=== PATIENT | female | born 2000 ===

== ENCOUNTER 2021-07-12 15:03 | Inpatient (IN) | payer MEDICAID ==
[2021-07-12] MEDS ORDERED: ONDANSETRON 4 MG/2 ML INJ IV PRN (16:59)
[2021-07-12] MEDS ORDERED: TERBUTALINE 1 MG/1 ML INJ SUB-Q PRN (16:59)
[2021-07-12] MEDS ORDERED: NALOXONE 0.4 MG/1 ML INJ IV PRN (16:59)
[2021-07-12] MEDS ORDERED: ePHEDrine SULFATE 50 MG/1 ML INJ IV PRN (16:59)
[2021-07-12] MEDS ORDERED: METHYLERGONOVINE MALEATE 0.2 MG/ML VIAL IM PRN (16:59)
[2021-07-12] MEDS ORDERED: MINERAL OIL 30 ML ORAL LIQD PO PRN (16:59)
[2021-07-12] MEDS ORDERED: ACETAMINOPHEN 325 MG TAB PO PRN (16:59)
[2021-07-12] MEDS ORDERED: LIDOCAINE (2%) 20 MG/1 ML VIAL 20 ML MDV INFILTRATI ONE (16:59)
[2021-07-12] MEDS ORDERED: CARBOPROST TROMETHAMINE 250 MCG/1 ML INJ IM PRN (16:59)
[2021-07-12] MEDS ORDERED: fentaNYL 100 MCG/2 ML INJ IV PRN (16:59)
[2021-07-12] MEDS ORDERED: OXYTOCIN 10 UNIT/1 ML INJ IM PRN (16:59)
[2021-07-12] MEDS ORDERED: BUTORPHANOL 2 MG/1 ML INJ IV PRN (16:59)
[2021-07-12] MEDS ORDERED: PROMETHAZINE 25 MG TAB PO PRN (16:59)
[2021-07-12] MEDS ORDERED: miSOPROStol 200 MCG TAB PR PRN (16:59)
[2021-07-12] MEDS ORDERED: LOPERAMIDE 2 MG CAP PO PRN (16:59)
[2021-07-12] MEDS ORDERED: OXYTOCIN DRIP 30 UNITS/500 ML BAG IV SCH ×2 (17:00)
--- NOTE | 2021-07-12 17:04 | History and Physical Report ---
History of Present Illness Date of examination: 07/12/21 Date of admission: 07/12/2021 Chief complaint: My water broke. History of present illness: Pt is a @ 39+ wks who presents to triage with c/o SROM at 1000 am for clear fluid. She has a history of PPH with her first delivery. EDC Confirmation: 07/15/2021 Gestational Age: 39.4 weeks on admission Past History : 2 # 1 Delivery date: 10/10/2017 Delivery type: Delivery location: [place] Infant Sex: Male Comments: hemorrhage Past Medical History: Reviewed and updated today: Negative Past Surgical History: Reviewed and updated today: Negative General Comments - FH: Negative Risk Factors: Smoked Tobacco Use: Never smoker Smokeless Tobacco Use: Never Passive Smoke Exposure: no HIV High Risk Behavior: no Exercise: no Seatbelt Use: 100 % No Dietary Counseling Reason: pn yes Alcohol Use: no Drug Use: no Past Medical History Anesthesia Complications: negative Anemia: negative Autoimmune Disorder: negative Bleeding Disorder: negative Blood Transfusions: negative Breast Disease: negative Diabetes: negative Heart Disease: negative Hypertension: negative Hepatitis/Liver Disease: negative Kidney Disease/UTI: negative Neurologic/Epilepsy/Migraines: negative Phlebitis/Varicosities: negative Psychiatric: negative Pulmonary Disease/Asthma: negative Thyroid Disease: negative Hospitalizations: negative Surgery (Non-debt recovery officer): Negative Abnormal PAP: negative Infertility: negative Uterine Anomaly: negative Uterine Surgery (not C/S): negative Family Hx: Negative Infection History Hx of STD: none HIV Risk Eval: no Personal hx. of genital herpes: no Genetic History Congenital Heart Defect: Mom: no Verenice Disease: Mom: no Thalassemia Mom: no Neural Tube Defect Mom: no Down's Syndrome Mom: no Jakob-Sachs Mom: no Sickle Cell Disease/Trait Mom: no Hemophilia Mom: no Muscular Dystrophy Mom: no Cystic Fibrosis Mom: no Tu Chorea Mom: no Mental Retardation Mom: no Fragile X Mom: no Other Genetic/Chromosomal Disorder Mom: no Child w/other defect Mom: no Enviromental Exposures Xray Exposure: no Medication, drug, or alcohol use since LMP: no Chemical/Other Exposure: no Exposure to Cat Liter: no Hx of Parvovirus (Fifth Disease): no Past History Past Surgical History: no surgical history 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 ) Social history: no significant social history - Obstetrical History Expected Date of Delivery: 07/15/21 Actual Gestation: 39 Week(s) 4 Day(s) : 2 Para: 1 Hx # Term Pregnancies: 1 Number of Pregnancies: 0 Spontaneous Abortions: 0 Induced : 0 Number of Living Children: 1 Medications and Allergies Allergies Allergy/AdvReac Type Severity Reaction Status Date / Time No Known Allergies Allergy Verified 07/12/21 15:19 Home Medications Medication Instructions Recorded Confirmed Last Taken Type No Known Home Medications [No 07/12/21 07/12/21 Unknown History Reported Home Medications] Active Meds: Active Medications Acetaminophen (Acetaminophen 325 Mg Tab) 650 mg PO Q4H PRN PRN Reason: Pain, Mild (1-3) Butorphanol Tartrate (Butorphanol 2 Mg/1 Ml Inj) 1 mg IV Q2H PRN PRN Reason: Pain, Moderate(4-6) LABOR PAIN Carboprost Tromethamine (Carboprost Tromethamine 250 Mcg/1 Ml Inj) 250 mcg IM ONCE PRN PRN Reason: Uterine Bleeding Ephedrine Sulfate (Ephedrine Sulfate 50 Mg/1 Ml Inj) 10 mg IV Q2M PRN PRN Reason: Hypotension Fentanyl (Fentanyl 100 Mcg/2 Ml Inj) 100 mcg IV Q2H PRN PRN Reason: Pain,Severe (7-10) LABOR PAIN Oxytocin/Sodium Chloride (Pitocin/Ns 30 Unit/500ml) 30 units in 500 mls @ 4 mls/hr IV TITR ABDIRASHID; Protocol Lactated Ringer's (Lactated Ringers) 1,000 mls @ 125 mls/hr IV DIRECT ABDIRASHID Oxytocin/Sodium Chloride (Pitocin/Ns 30 Unit/500ml) 30 units in 500 mls @ 40 mls/hr IV TITR ABDIRASHID; Protocol Lidocaine (Lidocaine (2%) 20 Mg/1 Ml Vial 20 Ml Mdv) 20 ml INFILTRATI ONCE ONE Stop: 07/12/21 17:00 Loperamide HCl (Loperamide 2 Mg Cap) 2 mg PO ONCE PRN PRN Reason: give with Hemabate Methylergonovine Maleate (Methylergonovine Maleate 0.2 Mg/Ml Vial) 0.2 mg IM ONCE PRN PRN Reason: Uterine Bleeding Mineral Oil (Mineral Oil 30 Ml Oral Liqd) 30 ml PO QHS PRN PRN Reason: Constipation Misoprostol (Misoprostol 200 Mcg Tab) 800 mcg AR ONCE PRN PRN Reason: Uterine Bleeding Naloxone HCl (Naloxone 0.4 Mg/1 Ml Inj) 0.1 mg IV Q2MIN PRN PRN Reason: Res Rate </= 8 or 02 SAT < 92% Ondansetron HCl (Ondansetron 4 Mg/2 Ml Inj) 4 mg IV Q8H PRN PRN Reason: Nausea And Vomiting Oxytocin (Oxytocin 10 Unit/1 Ml Inj) 10 unit IM ONCE PRN PRN Reason: Uterine Bleeding Promethazine HCl (Promethazine 25 Mg Tab) 25 mg PO Q6H PRN PRN Reason: Nausea And Vomiting Terbutaline Sulfate (Terbutaline 1 Mg/1 Ml Inj) 0.25 mg SUB-Q ONCE PRN PRN Reason: Hyperstimulation/Hypertonicity Review of Systems All systems: negative - Vital Signs Vital signs: Vital Signs Pulse BP 95 H 107/71 07/12/21 15:23 07/12/21 15:23 Temp Pulse Resp BP Pulse Ox 98.2 F 85 16 116/70 07/12/21 15:25 07/12/21 16:13 07/12/21 15:25 07/12/21 16:13 - Physical Exam Breasts: Positive: deferred Cardiovascular: Regular rate Lungs: Positive: Normal air movement Abdomen: Positive: normal appearance, soft Genitourinary (Female): Positive: normal external genitalia, normal perenium Vulva: both: normal Vagina: Positive: other (Clear fluid seen at the introitus.) Uterus: Positive: normal size Extremities: Positive: normal - Obstetrical FHR: category 1 Uterine Contraction Monitor Mode: External Cervical Dilatation: 5 (SROM clear fluid) Cervical Effacement Percentage: 70 station: -2 Uterine Contraction Pattern: Regular Uterine Tone Measurement Phase: Resting Uterine Contraction Intensity: Mild Results Result Diagrams: 07/12/21 17:10 Abnormal lab results 07/12/21 Range/Units 15:20 Membranes Rupture Positive A (Negative) All other labs normal. GBS NEGATIVE HBsAg Screen Negative Negative *1 RPR Non Reactive Non Reactive *2 Rubella Antibodies, IgG 1.05 index Immune >0.99 *3 Non-immune <0.90 Equivocal 0.90 - 0.99 Immune >0.99 ABO Grouping O *4 Rh Factor Positive *5 Please note: Prior records for this patient's ABO / Rh type are not available for additional verification. Antibody Screen Negative Negative *6 Tests: (2) HB Solu + Rflx [facility] ([id number]) Hemoglobin (Hgb) Solubility Negative Negative *31 Tests: (3) HIV Ab/p24 Ag with Reflex ([id number]) HIV Ab/p24 Ag Screen Non Reactive Non Reactive *32 HIV Negative HIV-1/HIV-2 antibodies and HIV-1 p24 antigen were NOT detected. There is no laboratory evidence of HIV infection. Tests: (5) HCV Antibody reflex to BILL ([id number]) HCV Ab <0.1 s/co ratio 0.0-0.9 *34 Tests: (6) Interpretation: ([id number]) ! Interpretation: SPRCS *35 Negative Not infected with HCV, unless recent infection is suspected or other evidence exists to indicate HCV infection. Assessment and Plan A: 21 y.o. @ 39.4 wks, SROM. - Patient Problems (1) History of hemorrhage Current Visit: Yes Status: Acute Plan to address problem: Have uterotonics in room at delivery. (2) SROM (spontaneous rupture of membranes) Current Visit: Yes Status: Acute Plan to address problem: Limit vaginal exams. Monitor for s/sx of chorioamnionitis. (3) with 39 completed weeks gestation Current Visit: Yes Status: Acute Plan to address problem: Admit to labor and delivery. Initiate IV. Draw admission labs. IV pain management: IV pain medication. Anticipate .
[2021-07-12 18:01] LABS: Hematocrit 33.9 % (30.3-42.9); Hemoglobin 11.6 gm/dl (10.1-14.3); Mean Corpuscular HGB Conc 34 % (30-34); Mean Corpuscular Volume 81 fl (79-97); Platelet Count 209 K/mm3 (140-440); Red Blood Count 4.21 M/mm3 (3.65-5.03); Red Cell Distribution Width 13.9 % (13.2-15.2)
[2021-07-12] MEDS: LACTATED RINGERS 1,000 ML IV SCH ×2 (18:31→19:22)
--- NOTE | 2021-07-12 21:43 | Progress Note ---
Assessment and Plan A: 21 y.o. @ 39.4 wks, SROM, active labor (). P: Continue with Pitocin per protocol. Consider internal monitors at next exam if unchanged cervical exam. Anticipate . - Patient Problems (1) History of hemorrhage Current Visit: Yes Status: Acute (2) SROM (spontaneous rupture of membranes) Current Visit: Yes Status: Acute (3) with 39 completed weeks gestation Current Visit: Yes Status: Acute Subjective - Subjective Date of service: 07/12/21 Principal diagnosis: IUP @ 39.4 wks, SROM @ 10am clear fluid Patient reports: movement normal, contractions (Requesting IV pain medication. ) Objective - Vital Signs Vital Signs: Vital Signs - 12hr 07/12/21 07/12/21 07/12/21 15:23 15:25 16:13 Temperature 98.2 F Pulse Rate 95 H 95 H 85 Respiratory 16 Rate Blood Pressure 107/71 116/70 Blood Pressure 107/71 [Right] O2 Sat by Pulse Oximetry O2 Sat by Pulse Oximetry [ Bilateral] 07/12/21 07/12/21 07/12/21 18:49 18:55 19:00 Temperature Pulse Rate Respiratory Rate Blood Pressure Blood Pressure [Right] O2 Sat by Pulse 90 94 Oximetry O2 Sat by Pulse 99 Oximetry [ Bilateral] 07/12/21 07/12/21 07/12/21 19:11 19:12 19:17 Temperature 99.0 F Pulse Rate 82 77 Respiratory 16 Rate Blood Pressure 119/75 Blood Pressure 119/75 [Right] O2 Sat by Pulse 99 85 Oximetry O2 Sat by Pulse Oximetry [ Bilateral] 07/12/21 07/12/21 07/12/21 19:18 19:21 19:23 Temperature Pulse Rate 87 87 Respiratory 16 Rate Blood Pressure Blood Pressure [Right] O2 Sat by Pulse 100 98 Oximetry O2 Sat by Pulse Oximetry [ Bilateral] 07/12/21 07/12/21 07/12/21 19:28 19:33 19:38 Temperature Pulse Rate 69 84 74 Respiratory Rate Blood Pressure Blood Pressure [Right] O2 Sat by Pulse 97 98 97 Oximetry O2 Sat by Pulse Oximetry [ Bilateral] 07/12/21 07/12/21 07/12/21 19:43 19:48 19:53 Temperature Pulse Rate 79 79 85 Respiratory Rate Blood Pressure Blood Pressure [Right] O2 Sat by Pulse 97 97 97 Oximetry O2 Sat by Pulse Oximetry [ Bilateral] 07/12/21 07/12/21 07/12/21 19:58 20:07 20:12 Temperature Pulse Rate 104 H 81 68 Respiratory Rate Blood Pressure Blood Pressure [Right] O2 Sat by Pulse 97 96 96 Oximetry O2 Sat by Pulse Oximetry [ Bilateral] 07/12/21 07/12/21 07/12/21 20:17 20:22 20:27 Temperature Pulse Rate 75 83 93 H Respiratory Rate Blood Pressure Blood Pressure [Right] O2 Sat by Pulse 96 96 97 Oximetry O2 Sat by Pulse Oximetry [ Bilateral] 07/12/21 07/12/21 07/12/21 20:32 20:37 20:42 Temperature Pulse Rate 76 86 80 Respiratory Rate Blood Pressure Blood Pressure [Right] O2 Sat by Pulse 96 97 96 Oximetry O2 Sat by Pulse Oximetry [ Bilateral] 07/12/21 07/12/21 07/12/21 20:47 20:52 20:57 Temperature Pulse Rate 83 90 93 H Respiratory Rate Blood Pressure Blood Pressure [Right] O2 Sat by Pulse 97 96 96 Oximetry O2 Sat by Pulse Oximetry [ Bilateral] 07/12/21 07/12/21 07/12/21 21:02 21:07 21:12 Temperature Pulse Rate 100 H 92 H 94 H Respiratory Rate Blood Pressure Blood Pressure [Right] O2 Sat by Pulse 97 97 97 Oximetry O2 Sat by Pulse Oximetry [ Bilateral] 07/12/21 07/12/21 07/12/21 21:17 21:22 21:27 Temperature Pulse Rate 91 H 87 95 H Respiratory Rate Blood Pressure Blood Pressure [Right] O2 Sat by Pulse 96 97 99 Oximetry O2 Sat by Pulse Oximetry [ Bilateral] 07/12/21 07/12/21 07/12/21 21:32 21:37 21:40 Temperature Pulse Rate 74 97 H 74 Respiratory Rate Blood Pressure Blood Pressure [Right] O2 Sat by Pulse 99 98 93 Oximetry O2 Sat by Pulse Oximetry [ Bilateral] - Exam Cardiovascular: Regular rate Lungs: Normal air movement Abdomen: Present: normal appearance Vulva: both: normal FHR: category 1 Uterine Contraction Monitor Mode: External Cervical Dilatation: 6 (Per RN) Cervical Effacement Percentage: 70 station: -1 Uterine Contraction Pattern: Regular Uterine Tone Measurement Phase: Resting Uterine Contraction Intensity: Moderate - Labs Labs: Abnormal Labs 02/25/22 15:20 Membranes Rupture Positive A Laboratory Results - last 24 hr 07/12/21 07/12/21 07/12/21 15:20 17:10 17:10 WBC 11.0 RBC 4.21 Hgb 11.6 Hct 33.9 MCV 81 MCH 28 MCHC 34 RDW 13.9 Plt Count 209 Membranes Rupture Positive A Syphilis IgG/IgM Ab Nonreactive Blood Type Antibody Screen 07/12/21 17:10 WBC RBC Hgb Hct MCV MCH MCHC RDW Plt Count Membranes Rupture Syphilis IgG/IgM Ab Blood Type O POSITIVE Antibody Screen Negative
--- NOTE | 2021-07-12 22:51 | Procedure Note ---
OB Delivery Note - Delivery Date of Delivery: 07/12/21 Production Statistical Clerk: SARAH MARRERO Estimated blood loss: 100cc - Vaginal Delivery presentation: vertex Delivery position: OA Intrapartum events: none Delivery induction: none Delivery augmentation: pitocin Delivery monitor: external FHT, external uterine Route of delivery: Delivery placenta: spontaneous Delivery cord: 3 umbilical vessels Episiotomy: none Delivery laceration: none Anesthesia: intravenous Delivery comments: of viable male . to mother's abdomen for skin to skin. Cord clamped after cessation of pulse. Cut by FOC. Spontaneous delivery of placenta, intact, complete, 3 vessels noted. Perineum and vagina inspected, no lacerations noted. Fundus firm, minimal bleeding noted. EBL 100ml. Apgars 7,9. weight 7-2. Sponges and instruments counted X2 with RN and correct X2. and mother left in care of RN in stable condition. - Infant A at 1 minute: 7 at 5 minutes: 9 Infant Gender: Male (7-4)
[2021-07-13] MEDS ORDERED: OXYTOCIN DRIP 30 UNITS/500 ML BAG IV SCH (01:26)
[2021-07-13] MEDS ORDERED: PROMETHAZINE 25 MG TAB PO PRN (01:26)
[2021-07-13] MEDS ORDERED: PROMETHAZINE 25 MG RECT SUPP PR PRN (01:26)
[2021-07-13] MEDS ORDERED: miSOPROStol 100 MCG TAB PR PRN (01:26)
[2021-07-13] MEDS: IBUPROFEN 800 MG TAB PO SCH ×3 (01:26→17:20)
[2021-07-13] MEDS ORDERED: ONDANSETRON 4 MG/2 ML INJ IV PRN (01:26)
[2021-07-13] MEDS: SENNOSIDES/DOCUSATE SODIUM 8.6/50 MG TAB PO SCH ×2 (01:26→22:00)
[2021-07-13] MEDS ORDERED: BENZOCAINE/MENTHOL 20/0.5% TOP SPRAY 56 GM TP PRN (01:26)
[2021-07-13] MEDS ORDERED: oxyCODONE /ACETAMINOPHEN 5-325MG TAB PO PRN (01:26)
[2021-07-13] MEDS ORDERED: diphenhydrAMINE 25 MG CAP PO PRN (01:26)
[2021-07-13] MEDS ORDERED: LANOLIN/ZINC/DIMETHICONE (LANSINOH) 7 GM TP PRN ×2 (01:26)
[2021-07-13] MEDS ORDERED: MAGNESIUM HYDROXIDE (MOM) ORAL LIQD UDC PO PRN (01:26)
[2021-07-13] MEDS ORDERED: WITCH HAZEL/ GLYCERIN PAD TP PRN (01:26)
[2021-07-13] MEDS ORDERED: ACETAMINOPHEN 500 MG TAB PO PRN (01:34)
[2021-07-13] MEDS: PRENATAL VIT27-FE FUMARATE-FOLIC ACID VIT TAB PO SCH (10:39)
[2021-07-13] MEDS: DOCUSATE SODIUM 100 MG CAP PO SCH ×2 (10:39→22:30)
--- NOTE | 2021-07-13 11:59 | Progress Note ---
Assessment and Plan H&H ordered but not yet collected, VSSAF, Pt resting in bed. Baby boy in bassinet. States feeling well, denies any concerns. Breast feeding well. Interested in control, discussed all options. Doesn't desire Circ for son. Discussed discharge planning and f/u. JAMES Yates CNM - Patient Problems (1) (normal spontaneous vaginal delivery) Current Visit: Yes Status: Acute Plan to address problem: continue pathway Anticipate d/c home tomorrow Subjective - Subjective Date of service: 07/13/21 Principal diagnosis: day #1 s/p Patient reports: appetite normal, voiding normally, pain well controlled, ambulating normally, no dizzy ambulation, no nauseated [place]: doing well Objective - Vital Signs Latest vital signs: Vital Signs Temp Pulse Resp BP BP Pulse Ox Pulse Ox 07/13/21 09:52 96 07/13/21 09:05 97.9 F 95 H 18 94/63 97 07/13/21 04:30 98.8 F 77 16 114/78 07/13/21 01:26 18 07/13/21 00:17 98.1 F 79 18 98/63 96 07/13/21 00:00 98 07/12/21 23:48 76 111/71 07/12/21 23:33 90 117/67 07/12/21 23:18 100 H 118/70 07/12/21 23:04 100 H 121/84 07/12/21 22:49 100 H 116/80 07/12/21 22:27 100 H 132/88 98 07/12/21 22:22 98 H 88 07/12/21 22:17 104 H 96 07/12/21 22:12 104 H 98 07/12/21 22:07 44 L 100 07/12/21 22:02 35 L 83 L 07/12/21 22:00 78 82 L 07/12/21 21:57 103 H 95 07/12/21 21:55 87 88 07/12/21 21:52 91 H 96 07/12/21 21:47 85 97 07/12/21 21:42 78 92 07/12/21 21:40 74 93 07/12/21 21:37 97 H 98 07/12/21 21:32 74 99 07/12/21 21:27 95 H 99 07/12/21 21:22 87 97 07/12/21 21:17 91 H 96 07/12/21 21:12 94 H 97 07/12/21 21:07 92 H 97 07/12/21 21:02 100 H 97 07/12/21 20:57 93 H 96 07/12/21 20:52 90 96 07/12/21 20:47 83 97 07/12/21 20:42 80 96 07/12/21 20:37 86 97 07/12/21 20:32 76 96 07/12/21 20:27 93 H 97 07/12/21 20:22 83 96 07/12/21 20:17 75 96 07/12/21 20:12 68 96 07/12/21 20:07 81 96 07/12/21 19:58 104 H 97 07/12/21 19:53 85 97 07/12/21 19:48 79 97 07/12/21 19:43 79 97 07/12/21 19:38 74 97 07/12/21 19:33 84 98 07/12/21 19:28 69 97 07/12/21 19:23 87 98 07/12/21 19:21 16 07/12/21 19:18 87 100 07/12/21 19:17 85 07/12/21 19:12 77 119/75 07/12/21 19:11 99.0 F 82 16 119/75 99 07/12/21 19:00 99 07/12/21 18:55 94 07/12/21 18:49 90 07/12/21 16:13 85 116/70 07/12/21 15:25 98.2 F 95 H 16 107/71 07/12/21 15:23 95 H 107/71 Intake and Output 07/12/21 07/13/21 07/13/21 23:59 07:59 15:59 Intake Total 120.75 300 Balance 120.75 300 Intake: IV 120.75 Lactated Ringers 1,000 ml 106.25 @ 125 mls/hr IV DIRECT ABDIRASHID Rx#:[id number] PITOCin/NS 30 UNIT/500ML 14.5 30 units In 500 ml @ 4 mls/hr IV TITR ABDIRASHID Rx#: [id number] Intake, Free Water 300 Other: Estimated Blood Loss 100 - Exam Breasts: Present: normal Abdomen: Present: normal appearance, soft Uterus: Present: normal, firm Extremities: Present: normal - Labs Labs: Abnormal lab results 07/12/21 Range/Units 15:20 Membranes Rupture Positive A (Negative)
[2021-07-13 19:27] LABS: Hematocrit 33.8 % (30.3-42.9); Hemoglobin 11.4 gm/dl (10.1-14.3)
[2021-07-14] MEDS ORDERED: TETANUS,DIPH,PERTUSS(ACELL) VACCINE 0.5 ML SYRINGE IM ONE (06:00)
--- NOTE | 2021-07-14 08:23 | Discharge Summary ---
Providers - Providers Date of Admission: 07/12/21 16:59 Date of discharge: 07/14/21 Attending physician: SALVADOR NEIL MD Primary care physician: SALVADOR NEIL MD Hospitalization Reason for admission: Labor Condition: Good Pertinent studies: post delivery H&H 11.4/33.8 Procedures: Hospital course: uncomplicated and postop course Disposition: 01 HOME / SELF CARE / HOMELESS Final Discharge Diagnosis (Prints w/discharge instructions): Time spent for discharge: 20 - Discharge Diagnoses (1) (normal spontaneous vaginal delivery) Status: Acute Core Measure Documentation - Palliative Care Palliative Care/ Comfort Measures: Not Applicable - Core Measures Any of the following diagnoses?: none Exam - Constitutional Vitals: Temp Pulse Resp BP Pulse Ox 98.6 F 79 18 100/59 96 07/14/21 07:20 07/14/21 07:20 07/14/21 07:20 07/14/21 07:20 07/14/21 07:20 General appearance: Present: no acute distress - EENT ENT: hearing intact - Neck Neck: Present: supple, normal ROM - Respiratory Respiratory effort: normal - Cardiovascular Rhythm: regular - Extremities Extremities: No edema, normal temperature, normal color - Abdominal General gastrointestinal: Present: soft, non-tender, non-distended. Absent: tender, distended Female genitourinary: Present: normal - Integumentary Integumentary: Present: clear, warm, dry - Musculoskeletal Musculoskeletal: strength equal bilaterally - Psychiatric Psychiatric: appropriate mood/affect - Neurologic Neurologic: CNII-XII intact - Additional findings Additional findings: lochia scant, fundus firm Plan Activity: no restrictions Diet: regular Follow up with: SALVADOR NEIL MD [Primary Care Provider] - 08/12/21 (Congratulations! Please call [phone] to schedule a your visit in 4 weeks) Prescriptions: Ibuprofen [Motrin 800 MG tab] 800 mg PO Q8HR PRN #30 tablet PRN Reason: Pain
[2021-07-14] MEDS: DOCUSATE SODIUM 100 MG CAP PO SCH (10:10)
[2021-07-14] MEDS: PRENATAL VIT27-FE FUMARATE-FOLIC ACID VIT TAB PO SCH (10:10)
[2021-07-14] MEDS: IBUPROFEN 800 MG TAB PO SCH ×3 (10:11→12:40)
[2021-07-14] MEDS: SENNOSIDES/DOCUSATE SODIUM 8.6/50 MG TAB PO SCH (10:11)
[2021-07-14 16:15] VITALS: BP 102/62
== END 2021-07-14 16:37 | disposition home or self-care (01) | DRG 775 ==
LOC: TRG 15:03 → APU 15:04 → LD 16:59 → TRG 16:59 → LD 18:03 → OB 07-13 00:10
PROVIDERS: ADMIT Student in an Organized Health Care Education/Training Program; ATTEND Student in an Organized Health Care Education/Training Program
PROC: 10E0XZZ Delivery of Products of Conception, External Approach (ICD-10-PCS; principal; 2021-07-12)
PROC: 3E0234Z Introduction of Serum, Toxoid and Vaccine into Muscle, Percutaneous Approach (ICD-10-PCS; 2021-07-14)
DX: O80 Encounter for full-term uncomplicated delivery (principal); Z20.822 Contact with and (suspected) exposure to COVID-19; Z23 Encounter for immunization; Z37.0 Single live birth; Z3A.39 39 weeks gestation of pregnancy
CPT/HCPCS: 36415; 84112; 85014; 85018; 85027; 86592; 86850; 86900; 86901; G0378; J0595; J2590; J3010; J7120; U0003